=== PATIENT | male | born 1950 | race Caucasian/White ===

== ENCOUNTER → 2017-03-11 08:31 | Outpatient (CLI) | payer MEDICARE, OTHER ==
[2016-03-21 08:31] VITALS: BMI 24.8
[~2017-03-11 08:31] MED LIST: BIOTIN5 MG PO; GLUCOSAMINE & C1 CAP PO; HYDROCODONE-APA1 TAB PO; LIPITOR40 MG PO; MULTIPLE VITAMI1 TA1 PO; NEXIUM20 MG PO; REGLAN10 MG PO; VITAMIN D31000 UNIT PO; ZYRTEC10 MG PO
== END | disposition home or self-care (01) ==
LOC: D.CT 08:31
DX: C16.1 Malignant neoplasm of fundus of stomach (principal); D64.9 Anemia, unspecified; D69.3 Immune thrombocytopenic purpura; D69.6 Thrombocytopenia, unspecified; C16.0 Malignant neoplasm of cardia; C78.7 Secondary malignant neoplasm of liver and intrahepatic bile duct; R23.3 Spontaneous ecchymoses

== ENCOUNTER 2017-07-30 07:23 | Day surgery (SDC) | payer MEDICARE, OTHER ==
[2017-07-30] MEDS ORDERED: CARAFATE1 G PO (08:24)
[2017-07-30] MEDS ORDERED: XELODA500 MG PO (08:24)
[2017-07-30] MEDS ORDERED: L-LYSINE500 M1 PO (08:24)
[2017-07-30] MEDS ORDERED: PEPCID20 MG PO (08:25)
[2017-07-30 08:37] VITALS: BMI 22.5
[2017-07-30 08:48] LABS: BASOPHILS 0.8 % (0-2); HEMATOCRIT 36.1 % (42.0-54.0); HEMOGLOBIN 12.6 g/dL (13.5-17.5); IMMATURE GRANULOCYTES 0.3 % (0-5); LYMPHOCYTES 15.4 % (15-50); MCH 32.8 pg (26.0-34.0); MCHC 34.9 g/dL (31.0-37.0); MEAN PLATELET VOLUME 11.5 fL (7.4-10.4); NEUTROPHILS 70.5 % (40-80); PLATELET COUNT 80 10x3/uL (130-400); RBC 3.84 10x6/uL (4.20-6.10); RDW 22.5 % (11.5-14.5); WBC 3.8 10x3/uL (4.8-10.8)
[2017-07-30 09:05] LABS: CALC OSMOLALITY 269 mosm/kg (275-300); CALCIUM 8.6 mg/dL (8.5-10.1); CARBON DIOXIDE 27.2 mmol/L (21.0-32.0); CHLORIDE - SERUM 100 mmol/L (98-107); CREATININE - SERUM 0.7 mg/dL (0.6-1.3); GLUCOSE 92 mg/dL (74-106); POTASSIUM - SERUM 4.1 mmol/L (3.5-5.1); SODIUM 136 mmol/L (136-145); UREA NITROGEN 8 mg/dL (7-18); eGFR NON AFRICAN AMERICAN > 90 mL/min (90-120)
[2017-07-30 09:08] LABS: PLATELET ESTIMATE DECREASED
--- NOTE | 2017-07-30 10:38 | NUR ---
1039-16MM,17MM,18MM ESOPHAGEAL BALLOON USED TO DILATE.
--- NOTE | 2017-07-30 11:10 | NUR ---
FULL LIQ DIET PROVIDED.
--- NOTE | 2017-07-30 11:47 | NUR ---
PORT TO LEFT CHEST FLUSHED WITH 10CCNS AND 5CC HEP FLUSH, ACCESS NEEDLE D/C'D. COVERED WITH BANDAID.
--- NOTE | 2017-07-30 11:53 | NUR ---
D/C INSTRUCTIONS EXPLAINED TO PT. VOICED UNDERSTANDING. COPIES OF ALL GIVEN TO PT.
--- NOTE | 2017-07-30 11:55 | NUR ---
D/C'D HOME VIA W/C TO PRIVATE CAR.
--- NOTE | 2017-08-02 12:36 | OP ---
PATIENT NAME: ABDI VARELA MEDICAL RECORD: [id number] :48 LOCATION:D.OPS ADMISSION DATE: SURGEON: HILARIO BEAULIEU MD DATE OF OPERATION: 07/30/2017 PREOPERATIVE DIAGNOSES: 1. Dysphagia. 2. History of gastric cancer. 3. Hypercholesterolemia. POSTOPERATIVE DIAGNOSES: 1. Dysphagia. 2. History of gastric cancer. 3. Hypercholesterolemia. PROCEDURE: EGD with biopsy and dilatation. SURGEON: Hilario Beaulieu MD REPORT OF PROCEDURE: Olympus endoscope was advanced through the mouth and esophagus. We passed through a tight GE junction from her previous proximal gastrectomy with esophagostomy. The scope was advanced through the stomach and into the pylorus. The patient's proximal small bowel and duodenum looked normal with no signs of any masses, lesions, or ulcerations. There was no sign of any inflammatory changes. As we pulled back, there was some mild gastritis with streaking towards the pylorus. The pylorus was quite dilated with a known history of pyloroplasty. A biopsy was taken of the pylorus and sent off for CLOtest. As we began our retroflexed view, there was a tight area in the mid stomach, which had some benign-appearing masses present. Biopsies were taken on 3 of these lesions. They were all in very close proximity to one another. As we pulled the scope back, the most proximal aspect of the stomach was more dilated and a retroflexed view showed that the patient's GE junction was tight around the scope. There was no sign of any inflammatory changes, masses, lesions, or ulcerations around the GE junction on the gastric side. As we pulled the scope back, there was some streaking esophagitis with ulceration on the distal esophagus. Biopsies were taken times 2. There were no distinct masses or lesions visible. We then inserted a balloon dilator and inflated this at the new GE junction up to a 45. This was done without complication, and there was only minor bleeding present. At this point, the endoscope was removed after the insufflation was taken out of the stomach. COMPLICATIONS: None. CONDITION: Stable. ANESTHESIA: TIVA. BLOOD LOSS: Minimal. TRANSINT:[id number] Voice Confirmation ID: [id number] DOCUMENT ID: [id number] OPERATIVE REPORT [id number] AVERYABDI ADAMS HILARIO ORTIZ MD at 1236 CC: MESHA RODRIGUEZ MD [id number] DICTATION DATE: 07/30/17 1047 MAKE UP ARRANGER: 07/30/17 1156 [facility] [place] 07/30/17 [id number] [place] [address]
== END 2017-07-30 12:00 | disposition home or self-care (01) ==
LOC: D.OPS 07:23
PROVIDERS: Anesthesiology
DX: Z85.028 Personal history of other malignant neoplasm of stomach (principal); R13.10 Dysphagia, unspecified; E78.00 Pure hypercholesterolemia, unspecified; K21.9 Gastro-esophageal reflux disease without esophagitis; F17.200 Nicotine dependence, unspecified, uncomplicated; Z01.812 Encounter for preprocedural laboratory examination

== ENCOUNTER 2021-03-06 13:09 | Day surgery (SDC) | payer MEDICARE, BC ==
[~2021-03-06] VITALS: Ht 174 cm; Wt 64.1 kg
[~2021-03-06 13:09] MED LIST changes: +CARAFATE1 G PO; +L-LYSINE500 M1 PO; +PEPCID20 MG PO; +XELODA500 MG PO
[2021-03-06 13:29] LABS: BASOPHILS 0.7 % (0-2); EOSINOPHILS 1.2 % (0-7); HEMATOCRIT 38.4 % (42.0-54.0); HEMOGLOBIN 12.9 g/dL (13.5-17.5); LYMPHOCYTES 8.8 % (15-50); MCH 30.6 pg (26.0-34.0); MCHC 33.6 g/dL (31.0-37.0); MCV 90.9 fL (80.0-100.0); MEAN PLATELET VOLUME 7.2 fL (7.4-10.4); MONOCYTES 10.2 % (2-11); NEUTROPHILS 79.1 % (40-80); RBC 4.22 10x6/uL (4.20-6.10); RDW 14.1 % (11.5-14.5); WBC 8.8 10x3/uL (4.8-10.8)
[2021-03-06 13:34] LABS: PLATELET COUNT 274 10x3/uL (130-400)
[2021-03-06 13:40] LABS: APTT 36.4 SECONDS (22.8-39.4); INR 1.13 (0.85-1.17); PROTIME 13.5 SECONDS (11.6-15.0)
[2021-03-06] MEDS ORDERED: FLOMAX0.4 MG PO (14:49)
[2021-03-06] MEDS ORDERED: PROBIOTIC1 EAC1 PO (14:49)
[2021-03-06] MEDS ORDERED: ASCORBIC ACID500 MG PO (14:50)
[2021-03-06 14:53] VITALS: BP 115/67; Ht 174 cm; Wt 64.1 kg
--- NOTE | 2021-03-06 15:42 | NUR ---
5-17- 1530 2G PIV STARTED RIGHT FOREARM
--- NOTE | 2021-03-06 16:21 | NUR ---
[facility] DELIVERY UNIT ID [id number]
--- NOTE | 2021-03-07 06:26 | OP ---
PATIENT NAME: ABDI VARELA MEDICAL RECORD: [id number] :48 LOCATION:D.OPS ADMISSION DATE: SURGEON: YOUSUF MITCHELL DO DATE OF OPERATION: 03/06/2021 PROCEDURE: EGD with biopsies and fecal transplant. SCOPE: Olympus video pediatric colonoscope. MEDICATIONS: Propofol 350 mg IV per anesthesia. ESTIMATED BLOOD LOSS: Minimal. COMPLICATIONS: None. FINDINGS: Informed consent was given. The patient was made comfortable with the above medication. After reaching an adequate level of sedation by slow IV push, the patient was placed on his left side. The endoscope was advanced under direct visualization through the mouth to the jejunum without difficulty. The esophagus appeared normal down to the distal esophagus and location of the GE junction where there was evidence of a prior surgery in the form of a proximal gastrectomy and esophagogastrostomy. The site had some inflammation, likely related to reflux and also being an anastomotic site. Biopsies were taken with cold forceps of some of this inflamed tissue, but appearances were not atypical. The endoscope was advanced beyond the surgical site and into the stomach. The mucosa appeared normal throughout the stomach. The patient has had a prior pyloroplasty as well. The transition into the small intestine was normal appearing. The endoscope traversed the small intestine approximately 100 cm with normal appearing mucosa throughout. When it was felt that the endoscope had reached its maximal distance, the transplant was performed utilizing 30 mL of open OpenBiome stool, injected through the endoscope followed by a flush with 60 mL of sterile saline. The endoscope was then withdrawn from the patient. The patient tolerated the procedure well and there were no immediate complications. IMPRESSION: 1. Evidence of prior surgery at the GE junction and pylorus areas consistent with a known esophagogastrostomy and pyloroplasty. 2. There was some inflammation at the proximal anastomosis that was biopsied using cold forceps. 3. Normal stomach and small bowel. 4. Fecal transplant performed with 30 mL of open OpenBiome stool followed by a sterile saline flush. PLAN AND RECOMMENDATIONS: 1. Discharge home when recovery parameters are met. 2. Follow up biopsy specimen results. 3. Continue current diet. 4. Continue current medications. 5. Follow up in GI clinic in 4-6 weeks. TRANSINT:[id number] Voice Confirmation ID: [id number] DOCUMENT ID: [id number] OPERATIVE REPORT [id number] ABDI VARELA NATHAN A DO at 0626 CC: [id number] DICTATION DATE: 03/06/21 163 DIRECTOR OF INTERCOLLEGIATE ATHLETICS: 03/06/21 2242 [facility] 03/06/21 [facility] [address] [id number]
== END 2021-03-06 17:30 | disposition home or self-care (01) ==
LOC: D.OPS 13:09
PROVIDERS: Anesthesiology; ATTEND Internal Medicine Gastroenterology
DX: K21.9 Gastro-esophageal reflux disease without esophagitis (principal); K92.1 Melena; R10.30 Lower abdominal pain, unspecified; A04.71 Enterocolitis due to Clostridium difficile, recurrent; R10.9 Unspecified abdominal pain; Z85.028 Personal history of other malignant neoplasm of stomach; Z98.890 Other specified postprocedural states; R19.7 Diarrhea, unspecified

== ENCOUNTER 2021-03-15 07:29 | Day surgery (SDC) | payer MEDICARE, BC ==
--- NOTE | 2021-03-14 10:13 | NUR ---
ATTEMPTED TO CONFIRM LIVER BIOPSY FOR 03/15/21 - NO ANSWER ON PT PHONE, LEFT MESSAGE TO CALL US BACK
--- NOTE | 2021-03-14 11:15 | NUR ---
PT CALLED BACK TO CONFIRM 03/15/21 APPT THINNERS: NONE NPO: VERBALIZES UNDERSTANDING RIDE: YES
[~2021-03-15] VITALS: Ht 174 cm; Wt 61.8 kg
[~2021-03-15 07:29] MED LIST changes: +ASCORBIC ACID500 MG PO; +FLOMAX0.4 MG PO; +PROBIOTIC1 EAC1 PO
[2021-03-15 08:18] LABS: CALC OSMOLALITY 263 mosm/kg (275-300); CALCIUM 9.5 mg/dL (8.5-10.1); CARBON DIOXIDE 29.9 mmol/L (21.0-32.0); CHLORIDE - SERUM 98 mmol/L (98-107); CREATININE - SERUM 0.7 mg/dL (0.6-1.3); GLUCOSE 95 mg/dL (74-106); POTASSIUM - SERUM 4.8 mmol/L (3.5-5.1); SODIUM 133 mmol/L (136-145); UREA NITROGEN 7 mg/dL (7-18); eGFR NON AFRICAN AMERICAN > 90 mL/min (90-120)
[2021-03-15 08:22] LABS: BASOPHILS 1.2 % (0-2); EOSINOPHILS 2.3 % (0-7); HEMOGLOBIN 12.8 g/dL (13.5-17.5); LYMPHOCYTES 9.7 % (15-50); MCH 30.2 pg (26.0-34.0); MCHC 33.8 g/dL (31.0-37.0); MCV 89.6 fL (80.0-100.0); MEAN PLATELET VOLUME 7.4 fL (7.4-10.4); MONOCYTES 10.8 % (2-11); RBC 4.24 10x6/uL (4.20-6.10); RDW 14.1 % (11.5-14.5); WBC 9.2 10x3/uL (4.8-10.8)
[2021-03-15 08:30] VITALS: BP 115/73; Ht 174 cm; Wt 61.8 kg
[2021-03-15 08:33] LABS: PLATELET COUNT 385 10x3/uL (130-400)
[2021-03-15 08:41] LABS: INR 1.18 (0.85-1.17); PROTIME 13.9 SECONDS (11.6-15.0)
[2021-03-15 08:42] LABS: APTT 41.6 SECONDS (22.8-39.4)
--- NOTE | 2021-03-15 11:30 | NUR ---
1118 SEE POST PROCEDURE CHECKLIST FOR VITAL SIGN TRENDS. FAMILY AT BEDSIDE, EXPLAINED BEDREST, TIME FRAME FOR DC GIVEN.
== END 2021-03-15 14:05 | disposition home or self-care (01) ==
LOC: D.CT 07:29
PROVIDERS: Specialist; ATTEND Internal Medicine Medical Oncology
DX: C16.1 Malignant neoplasm of fundus of stomach (principal); D64.9 Anemia, unspecified; D69.6 Thrombocytopenia, unspecified; D69.3 Immune thrombocytopenic purpura; C16.0 Malignant neoplasm of cardia; C78.7 Secondary malignant neoplasm of liver and intrahepatic bile duct; E53.8 Deficiency of other specified B group vitamins; Z23 Encounter for immunization; D50.9 Iron deficiency anemia, unspecified